=== PATIENT | female | born 1980 | race Caucasian/White ===

== ENCOUNTER 2023-08-06 09:01 | Emergency (ER) | payer MEDICAID ==
[~2023-08-06] VITALS: Ht 147.3 cm; Wt 63.7 kg
[2023-08-06] MEDS: normal saline 1000ml 1,000 ML IV ONE (10:42)
[2023-08-06] MEDS: ondansetron/PF 4mg/2ml inj IV ONE (10:43)
[2023-08-06 10:58] LABS: BASOPHILS % (AUTO) 0.4 % (0-1); EOSINOPHILS % (AUTO) 0.2 % (0-6); HEMATOCRIT 48.7 % (35.0-45.0); HEMOGLOBIN 16.2 g/dl (12.0-16.0); MEAN CORPUSCULAR HEMOGLOBIN 29.7 PG (27.0-31.0); MEAN CORPUSCULAR HGB CONC 33.2 g/dL (33.0-36.5); MEAN CORPUSCULAR VOLUME 89.4 FL (78-98); MEAN PLATELET VOLUME 8.8 FL (7.4-10.4); MONOCYTES # (AUTO) 0.6 X10'3 (0-0.9); NEUTROPHILS # (AUTO) 9.9 X10'3 (1.8-7.7); NEUTROPHILS % (AUTO) 85.4 % (42-75); PLATELET COUNT 257 X10'3 (140-440); RED BLOOD COUNT 5.45 X10'6 (4.20-5.60); RED CELL DISTRIBUTION WIDTH 12.6 % (11.5-14.5); WHITE BLOOD COUNT 11.6 X10'3 (4.5-11.0)
[2023-08-06 11:13] LABS: ALANINE AMINOTRANSFERASE 47 U/L (12-78); ALBUMIN 3.6 G/DL (3.4-5.0); ALBUMIN/GLOBULIN RATIO 0.9 (1.1-1.5); ALKALINE PHOSPHATASE 114 IU/L (46-116); ANION GAP 11 (8-16); ASPARTATE AMINO TRANSFERASE 24 U/L (10-37); BILIRUBIN,TOTAL 1.4 MG/DL (0.1-1.0); BLOOD UREA NITROGEN 12 MG/DL (7-18); CALCIUM 9.2 MG/DL (8.5-10.1); CHLORIDE 100 MMOL/L (99-107); GLUCOSE 312 MG/DL (70-104); LIPASE 21 U/L (16-77); POTASSIUM 4.5 MMOL/L (3.5-5.1); SODIUM 137 MMOL/L (135-145); TOTAL CARBON DIOXIDE 26.5 MMOL/L (24-32); TOTAL PROTEIN 7.6 G/DL (6.4-8.2); eCRCL 60 ML/MIN; eGFR 79 ML/MIN
[2023-08-06 11:19] LABS: BILIRUBIN,URINE NEGATIVE (Neg); CLARITY,URINE SLIGHTLY CLOUDY (Clear); COLOR,URINE YELLOW (Yellow); GLUCOSE, URINE >=1000 mg/dl (Neg); KETONES,URINE NEGATIVE (Neg); LEUKOCYTE ESTERASE ,URINE NEGATIVE (Neg); NITRITES, URINE NEGATIVE (Neg); OCCULT BLOOD,URINE NEGATIVE (Neg); PH,URINE 5.5 (4.8-8.0); PROTEIN,URINE 30 mg/dl (Neg); UROBILINOGEN,URINE 0.2 E.U/dL (0.2-1.0)
[2023-08-06 11:30] LABS: UA COLLECTION TYPE CLN CATCH MIDSTREAM
[2023-08-06 11:32] LABS: BACTERIA,URINE FEW /HPF (Neg); MUCUS STRANDS FEW /LPF (Neg); RBC,URINE 0-2 /HPF (0-2); SQUAMOUS EPITHELIAL CELL,UR MODERATE /LPF (FEW); WBC,URINE 0-4 /HPF (0-4)
[2023-08-06 11:54] VITALS: BP 160/115; PULSE 85; RESP 16; TEMP 97.7; O2SAT 98
[2023-08-06] MEDS ORDERED: SITA1TBM PO (12:22)
[2023-08-06] MEDS ORDERED: ONDA8TAB13 PO (12:22)
== END 2023-08-06 12:34 | disposition home or self-care (01) ==
LOC: ER 09:01
DX: R11.2 Nausea with vomiting, unspecified (principal); R19.7 Diarrhea, unspecified; E11.9 Type 2 diabetes mellitus without complications; Z59.00 Homelessness unspecified; Z76.0 Encounter for issue of repeat prescription
CPT/HCPCS: 36415; 80053; 81001; 83690; 85025; 96361; 96374; 99284; J2405; J7030

== ENCOUNTER 2023-08-31 13:55 | Emergency (ER) | payer MEDICAID ==
[~2023-08-31] VITALS: Ht 147.3 cm; Wt 66.0 kg
[~2023-08-31 13:55] MED LIST: ONDA8TAB13 PO; SITA1TBM PO
[2023-08-31] MEDS: acetaminophen 325mg tablet PO ONE (14:41)
[2023-08-31] MEDS: ketorolac tromethamine 15mg/ml inj. IM ONE (14:43)
[2023-08-31 15:30] LABS: BASOPHILS # (AUTO) 0.1 X10'3 (0-0.2); BASOPHILS % (AUTO) 0.9 % (0-1); EOSINOPHILS # (AUTO) 0.1 X10'3 (0-0.9); EOSINOPHILS % (AUTO) 0.9 % (0-6); HEMATOCRIT 44.7 % (35.0-45.0); LYMPHOCYTES # (AUTO) 0.8 X10'3 (1.1-4.8); LYMPHOCYTES % (AUTO) 11.8 % (21-51); MEAN CORPUSCULAR HEMOGLOBIN 29.9 PG (27.0-31.0); MEAN CORPUSCULAR HGB CONC 33.6 g/dL (33.0-36.5); MEAN PLATELET VOLUME 9.2 FL (7.4-10.4); MONOCYTES # (AUTO) 0.6 X10'3 (0-0.9); MONOCYTES % (AUTO) 8.2 % (2-12); NEUTROPHILS # (AUTO) 5.3 X10'3 (1.8-7.7); NEUTROPHILS % (AUTO) 78.2 % (42-75); PLATELET COUNT 164 X10'3 (140-440); RED BLOOD COUNT 5.02 X10'6 (4.20-5.60); WHITE BLOOD COUNT 6.8 X10'3 (4.5-11.0)
[2023-08-31 15:48] LABS: ALBUMIN 3.4 G/DL (3.4-5.0); ANION GAP 10 (8-16); BLOOD UREA NITROGEN 9 MG/DL (7-18); BUN/CREATININE RATIO 10.7 (10.0-20.0); CALCIUM 8.5 MG/DL (8.5-10.1); CHLORIDE 98 MMOL/L (99-107); CREATININE 0.84 MG/DL (0.40-0.90); GLUCOSE 290 MG/DL (70-104); POTASSIUM 3.8 MMOL/L (3.5-5.1); PRO BRAIN NATRIURETIC PEPTIDE 1534 PG/ML (0-125); SODIUM 134 MMOL/L (135-145); TOTAL CARBON DIOXIDE 26.1 MMOL/L (24-32); eCRCL 57 ML/MIN; eGFR 75 ML/MIN
[2023-08-31] MEDS ORDERED: ALBU8HFA INH (16:58)
[2023-08-31] MEDS ORDERED: PRED20TA PO (16:58)
[2023-08-31] MEDS ORDERED: AZIT250T PO (16:58)
[2023-08-31] MEDS: dexamethasone sod phosphate 10mg/ml inj PO STA (17:09)
[2023-08-31 17:26] VITALS: BP 132/89; PULSE 98; RESP 17; TEMP 98.7; O2SAT 99
== END 2023-08-31 17:33 | disposition home or self-care (01) ==
LOC: ER 13:56
DX: J20.9 Acute bronchitis, unspecified (principal); R05.9 Cough, unspecified; R50.9 Fever, unspecified; Z88.0 Allergy status to penicillin; Z88.2 Allergy status to sulfonamides
CPT/HCPCS: 36415; 71046; 80048; 83605; 83880; 85025; 87040; 96372; 99284; J1100; J1885

== ENCOUNTER 2023-09-10 10:05 | Emergency (ER) | payer MEDICAID ==
[~2023-09-10] VITALS: Ht 147.3 cm; Wt 64.0 kg
[~2023-09-10 10:05] MED LIST changes: +ALBU8HFA INH; +AZIT250T PO; +ONDA-245 PO; -ONDA8TAB13 PO
[2023-09-10 10:37] LABS: BASOPHILS # (AUTO) 0.1 X10'3 (0-0.2); BASOPHILS % (AUTO) 0.7 % (0-1); EOSINOPHILS # (AUTO) 0.2 X10'3 (0-0.9); HEMATOCRIT 42.7 % (35.0-45.0); HEMOGLOBIN 14.2 g/dl (12.0-16.0); LYMPHOCYTES # (AUTO) 1.3 X10'3 (1.1-4.8); LYMPHOCYTES % (AUTO) 14.3 % (21-51); MEAN CORPUSCULAR HGB CONC 33.2 g/dL (33.0-36.5); MEAN CORPUSCULAR VOLUME 90.5 FL (78-98); MEAN PLATELET VOLUME 8.5 FL (7.4-10.4); MONOCYTES # (AUTO) 1.1 X10'3 (0-0.9); MONOCYTES % (AUTO) 12.9 % (2-12); NEUTROPHILS # (AUTO) 6.3 X10'3 (1.8-7.7); NEUTROPHILS % (AUTO) 70.1 % (42-75); PLATELET COUNT 267 X10'3 (140-440); RED BLOOD COUNT 4.73 X10'6 (4.20-5.60); RED CELL DISTRIBUTION WIDTH 13.5 % (11.5-14.5); WHITE BLOOD COUNT 8.9 X10'3 (4.5-11.0)
[2023-09-10 11:03] LABS: ALBUMIN 3.2 G/DL (3.4-5.0); ANION GAP 10 (8-16); BLOOD UREA NITROGEN 13 MG/DL (7-18); BUN/CREATININE RATIO 20.6 (10.0-20.0); CALCIUM 8.3 MG/DL (8.5-10.1); CHLORIDE 101 MMOL/L (99-107); CREATININE 0.63 MG/DL (0.40-0.90); GLUCOSE 362 MG/DL (70-104); POTASSIUM 3.6 MMOL/L (3.5-5.1); PRO BRAIN NATRIURETIC PEPTIDE 1093 PG/ML (0-125); SODIUM 135 MMOL/L (135-145); TOTAL CARBON DIOXIDE 24.4 MMOL/L (24-32); eCRCL 77 ML/MIN; eGFR > 90 ML/MIN
[2023-09-10] MEDS ORDERED: acetaminophen 325mg tablet PO ONE (12:40)
[2023-09-10] MEDS: acetaminophen 325mg tablet PO ONE (12:46)
[2023-09-10 12:49] VITALS: BP 146/91; PULSE 98; TEMP 97.9; O2SAT 97
[2023-09-10 13:08] LABS: ETHANOL < 10 MG/DL (<10)
[2023-09-10 13:21] LABS: BILIRUBIN,URINE NEGATIVE (Neg); CLARITY,URINE CLEAR (Clear); COLOR,URINE YELLOW (Yellow); GLUCOSE, URINE >=1000 mg/dl (Neg); KETONES,URINE NEGATIVE (Neg); LEUKOCYTE ESTERASE ,URINE NEGATIVE (Neg); NITRITES, URINE NEGATIVE (Neg); OCCULT BLOOD,URINE NEGATIVE (Neg); PROTEIN,URINE NEGATIVE (Neg); UROBILINOGEN,URINE 0.2 E.U/dL (0.2-1.0)
[2023-09-10 13:42] LABS: URINE AMPHETAMINE SCREEN NEGATIVE (Neg); URINE BARBITUATE SCREEN NEGATIVE (Neg); URINE BENZODIAZEPINES SCREEN NEGATIVE (Neg); URINE CANNABINOID SCREEN NEGATIVE (Neg); URINE COCAINE SCREEN NEGATIVE (Neg); URINE METHADONE SCREEN NEGATIVE (Neg); URINE PHENCYCLIDINE SCREEN NEGATIVE (Neg)
[2023-09-10 13:48] LABS: UA COLLECTION TYPE CLN CATCH MIDSTREAM
[2023-09-10 13:49] LABS: BACTERIA,URINE 1+ /HPF (Neg); SQUAMOUS EPITHELIAL CELL,UR MANY /LPF (FEW)
[2023-09-10 13:50] LABS: RBC,URINE NONE SEEN /HPF (0-2); WBC,URINE 0-4 /HPF (0-4)
[2023-09-10] MEDS ORDERED: NAPR-996 PO ×2 (14:31→15:28)
[2023-09-10] MEDS ORDERED: METF-1203 PO ×2 (14:31→15:28)
[2023-09-10] MEDS ORDERED: LORA5TAB9 PO ×2 (14:31→15:28)
[2023-09-10] MEDS ORDERED: ALBU18HF2 IH (14:35)
[2023-09-10] MEDS: INSULIN LISPRO 100 UNIT/ML INSULN.PEN MULTI-DOSE SQ ONE (15:05)
[2023-09-10 15:06] VITALS: RESP 16
[2023-09-10] MEDS: HYDROcodone/acetaminophen 10/325mg tab PO ONE (15:06)
[2023-09-10] MEDS ORDERED: ALBU8HFA INH (15:28)
== END 2023-09-10 15:32 | disposition home or self-care (01) ==
LOC: ER 10:07
DX: E11.9 Type 2 diabetes mellitus without complications (principal); F32.A Depression, unspecified; Z76.0 Encounter for issue of repeat prescription; F17.200 Nicotine dependence, unspecified, uncomplicated; F15.90 Other stimulant use, unspecified, uncomplicated; Z88.0 Allergy status to penicillin; Z88.8 Allergy status to other drugs, medicaments and biological substances; Z79.899 Other long term (current) drug therapy; Z90.49 Acquired absence of other specified parts of digestive tract; Z90.710 Acquired absence of both cervix and uterus
CPT/HCPCS: 36415; 71045; 80048; 80305; 80320; 81001; 82948; 83880; 84484; 85025; 93005; 96372; 99285; J1815

== ENCOUNTER 2023-09-23 02:45 | Emergency (ER) | payer MEDICAID ==
[~2023-09-23] VITALS: Ht 147.3 cm; Wt 67.3 kg
[~2023-09-23 02:45] MED LIST changes: +ALBU18HF2 IH; +LORA5TAB9 PO; +METF-1203 PO; +NAPR-996 PO; -ONDA-245 PO; +ONDA8TAB13 PO
[2023-09-23 02:59] VITALS: BP 172/81
[2023-09-23] MEDS: acetaminophen 325mg tablet PO ONE (04:03)
[2023-09-23 04:50] VITALS: PULSE 87; RESP 20; TEMP 97.8; O2SAT 98
== END 2023-09-23 04:53 | disposition home or self-care (01) ==
LOC: ER 02:45
DX: S90.822A Blister (nonthermal), left foot, initial encounter (principal); S90.821A Blister (nonthermal), right foot, initial encounter; L30.1 Dyshidrosis [pompholyx]; E11.9 Type 2 diabetes mellitus without complications; F15.90 Other stimulant use, unspecified, uncomplicated; Z88.0 Allergy status to penicillin; Z88.2 Allergy status to sulfonamides; Z79.899 Other long term (current) drug therapy; Z79.2 Long term (current) use of antibiotics; Z90.49 Acquired absence of other specified parts of digestive tract; Z98.890 Other specified postprocedural states; Z90.710 Acquired absence of both cervix and uterus; X58.XXXA Exposure to other specified factors, initial encounter; Y93.89 Activity, other specified; Y92.89 Other specified places as the place of occurrence of the external cause; Y99.8 Other external cause status
CPT/HCPCS: 99283

== ENCOUNTER 2023-09-27 18:20 | Emergency (ER) | payer MEDICAID ==
[~2023-09-27] VITALS: Ht 177.8 cm; Wt 68.2 kg
[2023-09-27] MEDS: ketorolac tromethamine 15mg/ml inj. IM ONE (19:56)
[2023-09-27 20:46] VITALS: BP 170/90; PULSE 94; RESP 18; TEMP 98.6; O2SAT 99
== END 2023-09-27 20:48 | disposition home or self-care (01) ==
LOC: ER 18:20
DX: M79.672 Pain in left foot (principal); M79.671 Pain in right foot; E11.9 Type 2 diabetes mellitus without complications; F15.90 Other stimulant use, unspecified, uncomplicated; Z98.890 Other specified postprocedural states; Z90.710 Acquired absence of both cervix and uterus; Z90.49 Acquired absence of other specified parts of digestive tract
CPT/HCPCS: 82948; 93005; 96372; 99283; J1885